=== PATIENT | female | born 2000 | race African-American/Black ===

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

== ENCOUNTER 2021-07-11 11:55 | Emergency (ER) | payer OTHER ==
[~2021-07-11] VITALS: Ht 162.6 cm; Wt 70.9 kg
[2021-07-11 11:55] VITALS: BP 132/95
[~2021-07-11 11:55] MED LIST changes: +POTA20TA4 PO; +PROC10TA57 PO
--- NOTE | 2021-07-11 12:31 | PHYS DOC ---
Past Medical History Past Medical History: No Pertinent History Past Surgical History: No Surgical History Smoking Status: Never Smoker Alcohol Use: None Drug Use: None General Adult EDM: Chief Complaint: SORE THROAT HPI: HPI: Patient is a 21-year-old female who presents to the emergency department complaining of waking up with a stuffy nose for the past 5 days, patient reports she does have a hard time sleeping, denies recent fever or chills, reports a sore throat this morning, denies cough or chest congestion, denies chest pains, denies shortness of breath, denies ear pain, denies fever or chills. Patient reports taking asya-ynn-zlaaqva TheraFlu and Mucinex with about any relief, st ates she has some relief with taking DayQuil. Patient reports she does not have a primary care provider. Patient states she has not been vaccinated for the flu this season or the COVID-19 vaccine. Patient denies increased urinary frequency, urinary burning, urinary pressure, urinary pain or other dysuria or hematuria. Patient denies nausea, vomiting, diarrhea or abdominal discomfort. Patient denies other physical complaints or physical concerns. Patient reports her last menstrual cycle was 2 weeks ago with normal duration of flow. Patient's states she does not have a primary care provider, does not take prescription medications at home. Review of Systems: Review of Systems: 14 body systems of review of systems have been reviewed. See HPI for pertinent positives and negative responses, otherwise all other systems are negative, nonpertinent or noncontributory. Constitutional: Negative except as outlined in HPI above. Skin: Negative except as outlined in HPI above. Eyes: Negative except as outlined in HPI above. HENT: Negative except as outlined in HPI above. Respiratory: Negative except as outlined in HPI above. Cardiovascular: Negative except as outlined in HPI above. GI: Negative except as outlined in HPI above. : Negative except as outlined in HPI above. Musculoskeletal: Negative except as outlined in HPI above. Integument: Negative except as outlined in HPI above. Neurologic: Negative except as outlined in HPI above. Endocrine: Negative except as outlined in HPI above. Lymphatic: Negative except as outlined in HPI above. Psychiatric: Negative except as outlined in HPI above. Heart Score: C/O Chest Pain: No Risk Factors: Risk Factors: DM, Current or recent (<one month) smoker, HTN, HLP, family history of CAD, obesity. Risk Scores: Score 0 - 3: 2.5% MACE over next 6 weeks - Discharge Home Score 4 - 6: 20.3% MACE over next 6 weeks - Admit for Clinical Observation Score 7 - 10: 72.7% MACE over next 6 weeks - Early Invasive Strategies Allergies: Allergies: Allergies Coded Allergies Type Severity Reaction Last Updated Verified No Known Drug Allergies 09/05/19 No Physical Exam: PE: Constitutional: Well developed, well nourished, no acute distress, non-toxic appearance. 21-year-old female in no apparent distress. HENT: Normocephalic, atraumatic. Oropharynx moist, pink, no deep tissue infectious process appreciated, there is no uvular edema or deviation, no tonsillar edema, erythema, cobblestoning, or exudative drainage, there is a scant amount of clear postnasal drip, no laryngeal edema, patient speaking in normal voice tones, no drooling, no trismus, no lymphadenopathy of the head or neck appreciated. No pain with palpation over bony processes of sinuses, bilateral nasal turbinates boggy with scant clear nasal drainage. Bilateral TMs intact and within normal limits. Eyes: Conjunctiva normal, no discharge. There is no scleral icterus. Neck: Normal range of motion, no stridor. No nuchal rigidity, no meningismus signs. Cardiovascular: No cyanosis appreciated, distal cap refill less than 2 seconds. Regular rate and rhythm to auscultation. Lungs & Thorax: Patient is in no respiratory distress, normal work of breathing, lung sounds clear to auscultation all lung barros. Abdomen: Nontender, no abnormalities noted. Skin: Warm, dry, no erythema, no rash. Back: No tenderness, no deformities. Extremities: No tenderness, no cyanosis, no clubbing, ROM intact, no edema. Neurologic: Alert and oriented X 3, normal motor function, normal sensory function, no focal deficits noted. Psychologic: Affect normal, judgement normal, mood normal. Current Patient Data: Vital Signs: Vital Signs Date Time Temp Pulse Resp B/P (MAP) Pulse Ox O2 Delivery O2 Flow Rate FiO2 07/11/21 11:55 98.6 109 18 132/95 (107) 97 Room Air 98.6 EKG: EKG: [] Radiology/Procedures: Radiology/Procedures: [] Course & Med Decision Making: Course & Med Decision Making Pertinent Labs and Imaging studies reviewed. (See chart for details) 21-year-old female, vital signs reviewed, presents to the emergency department concerning nasal congestion for the past 5 days, patient also complains of sore throat. Low likelihood of strep throat per Centor score, physical examination consistent with rhinitis. Discussed with patient using ucff-plv-lbecpiz allergy medication such as Zyrtec or Claritin, discussed Sudafed use, Chloraseptic type throat spray for soothing, Tylenol and Motrin for symptoms. Increase fluids. Strict follow-up with primary care this week, return to ER precautions or concerns were reviewed. Patient gave verbal understanding of and is amenable to ED discharge planning. Discussed with the patient all findings and diagnostic testing as well as the need to follow-up with their primary care provider for further evaluation and treatment or return to the ED if any new or worsening symptoms. Strict return precautions were also discussed at length, the patient voiced understanding and agreement with the discharge planning. The patient was nontoxic in appearance, in no apparent distress, and hemodynamically stable at the time of disposition. Dragon Disclaimer: DragTykoon Disclaimer: This electronic medical record was generated, in whole or in part, using a voice recognition dictation system. Departure Departure Impression: Primary Impression: Rhinitis Qualified Codes: J31.0 - Chronic rhinitis Additional Impression: Sore throat Disposition: 01 HOME / SELF CARE / HOMELESS Condition: GOOD Referrals: NO PCP (PCP) Additional Instructions: You were seen today in the emergency department for stuffy nose and sore throat. Your physical examination is reassuring and there is no indication to start an antibiotic today. As we discussed, please purchase a bhtl-suw-qebxdaz allergy medication such as Zyrtec and take 1 dose nightly prior to going to bed, also please consider purchasing a nasal decongestant such as Sudafed and take to help with nasal congestion throughout the day. You may consider using a throat antiseptic spray such as Chloraseptic, the red color seems to work very well, please store in the refrigerator to help with extra soothing. Use Tylenol or Motrin for ongoing aches and pains. You had indicated you did not have a primary care provider. I have attached a list of primary care providers for you to establish primary health care, please see soon. Thank you for visiting our Emergency Department. It was a pleasure taking care of you today in the emergency department and we appreciate you trusting us with your care. If any additional problems come up don't hesitate to return to visit us. Please follow up with your primary care provider so they can plan additional care if needed and know about the problem that you had. If symptoms worsen come back to the Emergency Department. Any concerning symptoms that start such as chest pain, shortness of air, weakness or numbness on one side of the body, running high fevers or any other concerning symptoms return to the ER. [facility] [address] [place] [address] [facility] [address] [place] [address] [facility] [address] [place] [address] [facility] [address] [place] [address] [facility] [address] [place] [address] [facility] [address] [place] [address] [facility] [address] [place] [address] [facility] [address] [place] [address] [facility] [address] [place] [address] [facility] [place] [place] [facility] [address] [place] [address] IBIS FLEMING APRN Jul 11, 2021 12:31
[2021-07-11 12:33] LABS: INFLUENZA A PATIENT NEGATIVE (NEGATIVE); INFLUENZA B PATIENT NEGATIVE (NEGATIVE)
== END 2021-07-11 12:25 | disposition home or self-care (01) ==
LOC: ER 11:55
DX: J31.0 Chronic rhinitis (principal); J02.9 Acute pharyngitis, unspecified; Z20.822 Contact with and (suspected) exposure to COVID-19
CPT/HCPCS: 87428; 99283